=== PATIENT | male | born 1960 | race Caucasian/White ===

== ENCOUNTER → 2016-08-02 | Outpatient (CLI) | payer BC | LOC: FIMAGING 11:25 | PROVIDERS: ATTEND Physician Assistant Surgical | DX: S22.000D Wedge compression fracture of unspecified thoracic vertebra, subsequent encounter for fracture with routine healing (principal); M40.204 Unspecified kyphosis, thoracic region ==

== ENCOUNTER 2018-05-14 12:56 | Day surgery (SDC) | payer BC ==
--- NOTE | 2018-05-14 08:47 | PDHPUP ---
History & Physical Update H&P update statement: This history and physical update is based on an assessment of the patient which was completed after admission or registration (within 24 hours), but prior to the surgery/procedure. H&P update: H&P reviewed & patient examined, no change in patient's condition since H&P completed
[2018-05-14] MEDS ORDERED: ceFAZolin 2 GM/DEXTROSE 100 ML IV ONE (13:08)
[2018-05-14] MEDS ORDERED: LR 1,000 ML IV ONE (13:09)
[2018-05-14] MEDS ORDERED: DEXAMETHASONE 4 MG/ML VIAL ONE (14:02)
[2018-05-14] MEDS ORDERED: LIDOCAINE 2% 5 ML SDV ONE (14:02)
[2018-05-14] MEDS ORDERED: SUGAMMADEX SODIUM 200 MG/2 ML VIAL IVP ONE (14:02)
[2018-05-14] MEDS ORDERED: ROCURONIUM 50 MG/5 ML VIAL ONE (14:02)
[2018-05-14] MEDS ORDERED: ONDANSETRON 4 MG/2 ML VIAL ONE ×2 (14:02→18:48)
[2018-05-14] MEDS ORDERED: PROPOFOL 200 MG/20 ML VIAL ONE (14:03)
[2018-05-14] MEDS ORDERED: fentaNYL 100 MCG/2 ML INJ ONE (14:03)
--- NOTE | 2018-05-14 14:27 | PDANEPAE ---
ANE History of Present Illness here for Left inguinal hernia repair with robotic assist, poss bilateral ANE Past Medical History - Cardiovascular History Hx Hypertension: No Hx Arrhythmias: No Hx Chest Pain: No Hx Coronary Artery / Peripheral Vascular Disease: No Hx CHF / Valvular Disease: No Hx Palpitations: No - Pulmonary History Hx Oxygen in Use at Home: No Hx Sleep Apnea: No - Neurologic History Hx Cerebrovascular Accident: No Hx Seizures: No Hx Dementia: No - Endocrine History Hx Diabetes: No - Renal History Hx Renal Disorders: Yes Renal History Comment: bph - Liver History Hx Hepatic Disorders: No - Neurological & Psychiatric Hx Hx Neurological and Psychiatric Disorders: No - Cancer History Hx Cancer: No - Congenital Disorder History Hx Congenital Disorders: No - GI History Hx Gastrointestinal Disorders: No - Surgical History Prior Surgeries: left shoulder, titainum ada ANE Review of Systems Review of Systems: - Exercise capacity METS (RN): 6 METS ANE Patient History - Allergies Allergies/Adverse Reactions: Penicillins Allergy (Unknown, Verified 03/07/10 18:14) Rash - Home Medications Home Medications: Finasteride 5 mg 05/14/18 [Last Taken 05/13/18] Glucosamine Chondroit MSM Tab 05/14/18 [Last Taken 05/13/18] Liothyronine Sodium 5 mg 05/14/18 [Last Taken 05/13/18] Multivitamin 05/14/18 [Last Taken 05/13/18] Synthroid 112 mcg (*) 05/14/18 [Last Taken 05/13/18] - NPO status NPO Since - Liquids (Date): 05/14/18 NPO Since - Liquids (Time): 10:30 NPO Since - Solids (Date): 05/13/18 NPO Since - Solids (Time): 20:00 - Smoking Hx Smoking Status: Former smoker - Family Anes Hx Family Hx Anesthesia Complications: none ANE Labs/Vital Signs - Vital Signs Blood Pressure: 118/87 Heart Rate: 56 Respiratory Rate: 16 O2 Sat (%): 97 Height: 182.88 cm Weight: 72.575 kg ANE Physical Exam - Airway Neck exam: FROM Mallampati Score: Class 1 Mouth exam: normal dental/mouth exam - Pulmonary Pulmonary: no respiratory distress - Cardiovascular Cardiovascular: regular rate and rhythym - ASA Status ASA Status: II ANE Anesthesia Plan Anesthesia Plan: general endotracheal anesthesia Total IV Anesthesia: No
[2018-05-14] MEDS ORDERED: BUPIVACAINE/EPI 0.25% 30 ML SDV ONE (14:28)
[2018-05-14] MEDS ORDERED: HYDROmorphONE/DILAUDID 2 MG/ML INJ ONE (15:03)
[2018-05-14] MEDS ORDERED: oxyCODONE IR 5 MG TAB PO PRN (15:29)
[2018-05-14] MEDS ORDERED: ONDANSETRON 4 MG/2 ML VIAL IVP PRN (15:29)
[2018-05-14] MEDS ORDERED: PROMETHAZINE HCL 25 MG/ML INJ IVP PRN (15:29)
[2018-05-14] MEDS ORDERED: fentaNYL 100 MCG/2 ML INJ IVP PRN (15:29)
[2018-05-14] MEDS ORDERED: NALOXONE HCL 0.4 MG/ML INJ IVP PRN (15:29)
[2018-05-14] MEDS ORDERED: ACETAMINOPHEN 500 MG TAB PO PRN (15:29)
[2018-05-14] MEDS ORDERED: LR 500 ML IV PRN (15:29)
[2018-05-14] MEDS ORDERED: MEPERIDINE 25 MG/0.5 ML AMP IVP PRN (15:29)
[2018-05-14] MEDS ORDERED: HYDROmorphONE/DILAUDID 2 MG/ML INJ IVP PRN (15:29)
--- NOTE | 2018-05-14 15:43 | POSTOPPROG ---
Post Op Note Date of Operation: 05/14/18 Surgeon: Richard Trujillo Certified Tower Climber: ANGIE Stahl Anesthesiologist: Jessica Anesthesia: GET(General Endotracheal) Pre-op Diagnosis: LIH Post-op Diagnosis: indirect LIH Procedure: robotic assisted LIH c mesh Findings: mod indirect defect Inf/Abcess present in the surg proc area at time of surgery?: No EBL: Minimal
--- NOTE | 2018-05-14 16:22 | POSTANESTH ---
Post Anesthetic Evaluation Cardiovascular Status: Normal, Stable Respiratory Status: Normal, Stable Level of Consciousness/Mental Status: Can Participate in Eval Pain Control: Adequate, Prn Tx Ordered Nausea/Vomiting Control: Adequate, Prn Tx Ordered Complications Possibly Related to Anesthesia: None Noted
[2018-05-14 21:19] VITALS: BP 137/83
--- NOTE | 2018-05-16 14:01 | GOP ---
DATE OF OPERATION: SURGEON: Richard Trujillo MD WILDLIFE REFUGE SPECIALIST: Emily Field CFA. ANESTHESIA: General endotracheal. ANESTHESIOLOGIST: Dr. Lopez. PREOPERATIVE DIAGNOSIS: Left inguinal hernia. POSTOPERATIVE DIAGNOSIS: Indirect left inguinal hernia. PROCEDURE PERFORMED: Robotic-assisted laparoscopic inguinal hernia repair with mesh. FINDINGS: Moderate-sized indirect left inguinal hernia, successfully reduced and repaired with Bard 3D Light large-size mesh. SPECIMENS: None. ESTIMATED BLOOD LOSS: 5 cc. DESCRIPTION OF PROCEDURE: The patient was greeted in the preoperative suite. Once again, risks, edwin efits, and alternatives were discussed. Consent was signed. He was then brought back to the operati ve suite, placed on the OR table in supine position. After all anesthesia machines including SCDs we re on and functioning, [employer] time-out was performed. After successful induction of general anesthesia, the patient's abdomen was prepped and draped in typical sterile fashion. I co mmenced the procedure by making a supraumbilical cutdown, through which a Veress needle was passed. I achieved pneumoperitoneum to 15 mmHg CO2, which was well tolerated by the patient. Through this, I then inserted an 8 mm trocar. I then inserted 2 additional 8 mm trocars, 1 in the right and 1 in th e left upper quadrant, both under direct visualization. The patient was then placed in gentle [place] position and the robot was docked. I turned my attention first toward the patient's left theo in where an indirect defect was identified. I then scored my peritoneal flap just adjacent to the IS all the way medial to the pubic tubercle and took this flap all the way down to the visceral sac. The hernia was skeletonized off the cord and structures, taking care to protect the cord structures throughout. Once successfully skeletonized, I interrogated the area and found no other suspicious fi ndings. A Bard 3D Light left-side mesh was then brought into place. It was attached to the pubic tu bercle as well as on the medial and lateral side of the inferior epigastric vessels with interrupted Vicryl. Once it was allowed to lay in the appropriate position and flat, the peritoneal defect was t hen closed with a running V-Loc suture. Pneumoperitoneum was evacuated. The port sites were closed with Monocryl. Dermabond was placed. The patient was then extubated in the operative suite and take n to PACU in satisfactory condition. DRAINS: None. INSTRUMENT COUNT: All counts were reported as correct x2. /[id number]/MODL
== END 2018-05-14 20:52 | disposition home or self-care (01) ==
LOC: FSGY 12:56
PROVIDERS: ATTEND Surgery
PROC: 0YU64JZ Supplement Left Inguinal Region with Synthetic Substitute, Percutaneous Endoscopic Approach (ICD-10-PCS; principal; 2018-05-14 14:45)
DX: K40.90 Unilateral inguinal hernia, without obstruction or gangrene, not specified as recurrent (principal); E03.9 Hypothyroidism, unspecified; H93.12 Tinnitus, left ear; L82.1 Other seborrheic keratosis; N40.0 Benign prostatic hyperplasia without lower urinary tract symptoms; Z87.891 Personal history of nicotine dependence; Z82.49 Family history of ischemic heart disease and other diseases of the circulatory system; Z82.3 Family history of stroke; Z88.0 Allergy status to penicillin
CPT/HCPCS: C1781; J0690; J1100; J1170; J2405; J2704; J3010